=== PATIENT | female | born 1980 | race Caucasian/White ===

== ENCOUNTER 2018-06-18 09:29 | Emergency (ER) | payer OTHER ==
[2018-06-18 09:40] VITALS: BP 116/85
--- NOTE | 2018-06-18 09:46 | EDPHY ---
H & P Stated Complaint: R wrist injury after fall today. Time Seen by Provider: 06/18/18 09:35 HPI/ROS: Chief Complaint: Wrist injury HPI: 38-year-old woman had a mechanical slip and fall walking the dog this morning. She landed on outstretched right arm. Complaining of pain in her lateral wrist. No prior injuries. No other injuries at this time. ROS: 10 systems were reviewed and were negative except those elements noted in the HPI. PMH: Denies Social History: No smoking, no alcohol, no recreational drug use Family History: non-contributory Physical Exam: General: Awake, alert, no acute distress Right wrist: Distal radius is moderately swollen and deformed, there is distal radial tenderness. No elbow tenderness, full range of motion. Patient is unwilling to try to move her wrist. Sensations intact in the radial, median, and ulnar nerve distribution. Capillary refills less than 2 sec. She has 2+ radial and ulnar pulses. Skin: No rash - Personal History LMP (Females 10-55): 22-28 Days Ago Current Tetanus Diphtheria and Acellular Pertussis (TDAP): Yes Tetanus Vaccine Date: within 10 years - Medical/Surgical History Hx Asthma: Yes Hx Chronic Respiratory Disease: No Hx Diabetes: No Hx Cardiac Disease: No Hx Renal Disease: No Hx Cirrhosis: No Hx Alcoholism: No Hx HIV/AIDS: No Hx Splenectomy or Spleen Trauma: No Other PMH: raynauds, asthma - Social History Smoking Status: Never smoked Constitutional: Initial Vital Signs Temperature (C) 36.6 C 06/18/18 09:37 Heart Rate 71 06/18/18 09:37 Respiratory Rate 16 06/18/18 09:37 Blood Pressure 116/85 H 06/18/18 09:37 O2 Sat (%) 98 06/18/18 09:37 O2 Delivery Mode Room Air Allergies/Adverse Reactions: No Known Allergies Allergy (Verified 06/18/18 09:37) Home Medications: Medication Instructions Recorded Ventolin Hfa 06/18/18 Zyrtec 06/18/18 Medical Decision Making - Diagnostics Imaging Results: Imaging Impressions Wrist X-Ray 06/18/18 09:43 Impression: Acute minimally displaced intra-articular distal radius fracture. Procedures: Procedure: Splint placement Patient placed in a plaster dorsal and volar splint by me. Indication was distal radius fracture. I personally placed the splint myself. Following placement patient had excellent perfusion. Is comfortable. Good immobility and comfort. ED Course/Re-evaluation: Patient placed in a splint. Discharge with follow-up with Orthopedics. Departure - Departure Disposition: Home, Routine, Self-Care Clinical Impression: Wrist fracture Condition: Good Instructions: Wrist Fracture in Adults (ED), Splint Care (ED), R.I.C.E. Treatment (ED) Additional Instructions: Take ibuprofen, 600 mg every 8 hr. You may alternate with acetaminophen, 1000 mg every 8 hr. Apply ice for 15 min of every hour while awake. Follow up with Orthopedics in 4-5 days for further evaluation. Referrals: Leonarda Waters MD [Primary Care Provider] - As per Instructions Cali Klein MD [Medical Doctor] - As per Instructions
[2018-06-18] MEDS ORDERED: IBUPROFEN 600 MG TAB PO ONE (10:18)
== END 2018-06-18 10:23 | disposition home or self-care (01) ==
LOC: CED 09:29
PROC: 2W3CX1Z Immobilization of Right Lower Arm using Splint (ICD-10-PCS; principal; 2018-06-18)
DX: S52.501A Unspecified fracture of the lower end of right radius, initial encounter for closed fracture (principal); W01.0XXA Fall on same level from slipping, tripping and stumbling without subsequent striking against object, initial encounter; Y93.K1 Activity, walking an animal
CPT/HCPCS: 73110-PO; 99283-ER

== ENCOUNTER 2018-06-19 07:42 | Emergency (ER) | payer OTHER ==
[2018-06-19 07:54] VITALS: BP 136/89
[2018-06-19] MEDS ORDERED: HYDROmorphONE/DILAUDID 2 MG/ML INJ IM ONE (07:55)
--- NOTE | 2018-06-19 07:59 | EDPHY ---
H & P Stated Complaint: C/o numbness in fingers, pain in wrist after plaster cast placed yesterday Time Seen by Provider: 06/19/18 07:45 HPI/ROS: CHIEF COMPLAINT: Right arm pain HISTORY OF PRESENT ILLNESS: The patient is a 18-year-old female who fell yesterday and broke her wrist. She has a nondisplaced distal radius fracture. She was seen here in the ER and had a dorsal and volar splint placed. She comes back today concerned that the splint is too tight. She has pain on the radial aspect of her hand and tingling in her 4th and 5th digits. She also continues to have pain and swelling distal radius. She states she has been taking ibuprofen and Tylenol without significant relief. No discoloration. She is able to move her fingers. Severity: Moderate Modifying factors: Improved with loosening of the splint REVIEW OF SYSTEMS: Constitutional: denies: chills, fever, recent illness, recent injury EENTM: denies: blurred vision, double vision, nose congestion Respiratory: denies: cough, shortness of breath Cardiac: denies: chest pain, irregular heart rate, lightheadedness, palpitations Gastrointestinal/Abdominal: denies: abdominal pain, diarrhea, nausea, vomiting, blood streaked stools Genitourinary: denies: dysuria, frequency, hematuria, pain Musculoskeletal: denies: joint pain, muscle pain Skin: denies: lesions, rash, jaundice, bruising Neurological: denies: headache, numbness, paresthesia, tingling, dizziness, weakness Hematologic/Lymphatic: denies: blood clots, easy bleeding, easy bruising Immunologic/allergic: denies: HIV/AIDS, transplant 10 systems reviewed and negative except as noted EXAM: GENERAL: Well-appearing, well-nourished and in no acute distress. HEAD: Atraumatic, normocephalic. EYES: Pupils equal round and reactive to light, extraocular movements intact, sclera anicteric, conjunctiva are normal. ENT: TMs normal, nares patent, oropharynx clear without exudates. Moist mucous membranes. NECK: Normal range of motion, supple without lymphadenopathy or JVD. LUNGS: Breath sounds clear to auscultation bilaterally and equal. No wheezes rales or rhonchi. HEART: Regular rate and rhythm without murmurs, rubs or gallops. ABDOMEN: Soft, nontender, normoactive bowel sounds. No guarding, no rebound. No masses appreciated. BACK: No CVA tenderness, no spinal tenderness, step-offs or deformities EXTREMITIES: Splint removed from right wrist. Patient had improvement in pain and tingling of her 4th and 5th digits. She still has pain and is quite sensitive of her distal radius. No obvious deformity. Normal pulses and sensation distally. NEUROLOGICAL: Cranial nerves II through XII grossly intact. Normal speech, normal gait. 5/5 strength, normal movement in all extremities, normal sensation , normal reflexes PSYCH: Normal mood, normal affect. SKIN: Warm, dry, normal turgor, no visible rashes or lesions. Source: Patient Exam Limitations: No limitations - Personal History LMP (Females 10-55): 22-28 Days Ago Current Tetanus Diphtheria and Acellular Pertussis (TDAP): Yes Tetanus Vaccine Date: within 10 years - Medical/Surgical History Hx Asthma: Yes Hx Chronic Respiratory Disease: No Hx Diabetes: No Hx Cardiac Disease: No Hx Renal Disease: No Hx Cirrhosis: No Hx Alcoholism: No Hx HIV/AIDS: No Hx Splenectomy or Spleen Trauma: No Other PMH: raynauds, asthma - Family History Significant Family History: No pertinent family hx - Social History Smoking Status: Never smoked Alcohol Use: None Constitutional: Initial Vital Signs Temperature (C) 36.6 C 06/19/18 07:45 Heart Rate 81 06/19/18 07:45 Respiratory Rate 16 06/19/18 07:45 Blood Pressure 136/89 H 06/19/18 07:45 O2 Sat (%) 94 06/19/18 07:45 O2 Delivery Mode Room Air Allergies/Adverse Reactions: No Known Allergies Allergy (Verified 06/19/18 07:50) Home Medications: Medication Instructions Recorded Ventolin Hfa 06/18/18 Zyrtec 06/18/18 Hydrocodone/APAP 5/325 [Peytona 1 - 2 tab PO Q4H PRN #7 tab 06/19/18 5/325 (RX)] Medical Decision Making Procedures: Procedure: Splint placement. A volar and dorsal plaster splint was applied. After application of the splint I returned and re-examined the patient. The splint was adequately immobilizing the joint and distal to the splint the patient's circulation and sensation was intact. ED Course/Re-evaluation: The patient's splint was removed. She had improvement in pain. She is also given a dose of Dilaudid and is now agreeable to Vicodin in the outpatient setting. She states that this has made her nervous in the past. Also will replace her splint with extra cast padding. We discussed re-imaging her wrist. She does not feel that this is necessary and I agree that it would be low yield. Patient states that her paresthesias and pain have improved significantly with the splint removed. A new has been placed and she is tolerating this well. Differential Diagnosis: Partial list of the Differential diagnosis considered include but were not limited to; distal radius fracture, swelling, splint compression and although unlikely based on the history and physical exam, I also considered ischemia, infection, ulceration. I discussed these differential diagnoses and the plan with the patient as well as the usual and expected course. The patient understands that the diagnosis is provisional and that in medicine we are not always correct and that further workup is often warranted. Usual and customary warnings were given. All of the patient's questions were answered. The patient was instructed to return to the emergency department should the symptoms at all worsen or return, otherwise to followup with the physician as we discussed. - Data Points Medications Given: Discontinued Medications Hydromorphone HCl (Dilaudid) 1 mg IM EDNOW ONE Stop: 06/19/18 07:56 Last Admin: 06/19/18 08:02 Dose: 1 mg Departure - Departure Disposition: Home, Routine, Self-Care Clinical Impression: Splint malfunction Distal radius fracture, right Qualifiers: Encounter type: initial encounter Fracture type: closed Fracture morphology: Colles' Qualified Code(s): S52.531A - Colles' fracture of right radius, initial encounter for closed fracture Condition: Fair Instructions: Wrist Fracture in Adults (ED), Splint Care (ED) Referrals: Leonarda Waters MD [Primary Care Provider] - As per Instructions Cali Klein MD [Medical Doctor] - 5-7 days, call for appt. Prescriptions: Hydrocodone/APAP 5/325 [Peytona 5/325 (RX)] 1 - 2 tab PO Q4H PRN #7 tab PRN Reason: Pain, Moderate
== END 2018-06-19 08:34 | disposition home or self-care (01) ==
LOC: CED 07:42
PROC: 2W38X1Z Immobilization of Right Upper Extremity using Splint (ICD-10-PCS; principal; 2018-06-19)
DX: S52.501D Unspecified fracture of the lower end of right radius, subsequent encounter for closed fracture with routine healing (principal)
CPT/HCPCS: 96372-ER; 99284-ER; A4565-ER; J1170